=== PATIENT | male | born 1925 | race Caucasian/White ===

== ENCOUNTER 2016-09-26 19:27 | Emergency (ER) | payer MEDICARE, OTHER ==
[2010-10-13 12:35] VITALS: BMI 23.7
[2016-09-26 20:00] LABS: BASOPHILS 0.3 % (0.0-2.0); EOSINOPHILS 1.5 % (0-7); HEMATOCRIT 39.4 % (42.0-54.0); HEMOGLOBIN 12.8 g/dL (13.5-17.5); IMMATURE GRANULOCYTES 0.3 % (0-5); LYMPHOCYTES 16.1 % (15-50); MCH 30.7 pg (26.0-34.0); MCHC 32.5 g/dL (31.0-37.0); MCV 94.5 fL (80.0-100.0); MEAN PLATELET VOLUME 10.9 fL (7.4-10.4); NEUTROPHILS 72.8 % (40-80); PLATELET COUNT 182 10x3/uL (130-400); RBC 4.17 10x6/uL (4.20-6.10); RDW 13.8 % (11.5-14.5); WBC 7.1 10x3/uL (4.8-10.8)
[2016-09-26 20:23] LABS: ALBUMIN 4.1 g/dL (3.4-5.0); ANION GAP 12.7 mmol/L (8-16); BILIRUBIN - TOTAL 0.36 mg/dL (0.2-1.3); CALCIUM 9.5 mg/dL (8.5-10.1); CARBON DIOXIDE 28.2 mmol/L (21.0-32.0); CREATININE - SERUM 1.1 mg/dL (0.6-1.3); POTASSIUM - SERUM 4.9 mmol/L (3.5-5.1); PROTEIN - SERUM 7.7 g/dL (6.4-8.2)
[2016-09-26 20:44] LABS: APPEARANCE CLEAR (CLEAR); COLOR YELLOW (YELLOW)
[2016-09-26 20:45] LABS: BILIRUBIN NEGATIVE (NEGATIVE); GLUCOSE NEGATIVE (NEGATIVE); KETONE NEGATIVE (NEGATIVE); LEUKOCYTE ESTERASE NEGATIVE (NEGATIVE); NITRITE NEGATIVE (NEGATIVE); PROTEIN TRACE mg/dL (NEGATIVE); UROBILINOGEN NORMAL (NORMAL)
== END 2016-09-26 22:06 | disposition home or self-care (01) ==
LOC: D.ER 19:27
PROVIDERS: Emergency Medicine
DX: R10.31 Right lower quadrant pain (principal); K59.00 Constipation, unspecified

== ENCOUNTER 2017-02-09 11:23 | Emergency (ER) | payer MEDICARE, OTHER ==
[2010-10-13 12:35] VITALS: BMI 23.7
== END 2017-02-09 12:35 | disposition home or self-care (01) ==
LOC: D.ER 11:23
DX: L03.116 Cellulitis of left lower limb (principal); M25.562 Pain in left knee

== ENCOUNTER 2017-09-05 12:36 | Inpatient (IN) | payer MEDICARE, OTHER ==
[~2017-09-05] VITALS: Ht 180.3 cm; Wt 72.6 kg
--- NOTE | ~2017-09-05 | HP ---
PATIENT: EDITH LI MEDICAL RECORD: [id number] ACCOUNT: [id number] LOCATION:[facility] : [birth year] ADMISSION DATE: 09/05/17 HISTORY AND PHYSICAL EXAMINATION HISTORY OF PRESENT ILLNESS: An 89-year-old male presented to the Emergency Room with right upper quadrant pain, discomfort, constipation. Denies any nausea or vomiting. PAST MEDICAL HISTORY: Significant for pacemaker placement, advanced age, general decline. REVIEW OF SYSTEMS: GENERAL: No acute change in weight or appetite. HEENT: No cephalgia, visual changes, tinnitus, epistaxis, or dysphagia. CARDIOVASCULAR: Denies chest pain. Denies palpitations. PULMONARY: Denies hemoptysis. Denies night sweats. GASTROINTESTINAL: Right upper quadrant discomfort. Denies nausea or vomiting. Denies diarrhea. Admits constipation over the past 2 days. GENITOURINARY: Denies dysuria. Denies change in frequency. MUSCULOSKELETAL: No acute changes. ENDOCRINE: Denies polyuria, polydipsia, or polyphagia. PHYSICAL EXAMINATION: VITAL SIGNS: Temperature 98.2, blood pressure 110/64, heart rate 74, respirations 20, O2 sats 93% on room air. GENERAL: Alert, oriented, conversant, in mild discomfort secondary to NG tube placement. HEENT: Head: Normocephalic, atraumatic. Eyes: Pupils are equally round and reactive. Ears: Canals patent. TMs are intact. Nose: Nares patent without drainage. Throat: No erythema. No exudates. NECK: Supple. No lymphadenopathy. No JVD. HEART: Regular rate and rhythm. LUNGS: Clear to auscultation bilaterally. Breathing is nonlabored. ABDOMEN: NGT in place. Mild right upper quadrant tenderness. No rebound. No guarding. No palpable mass. MUSCULOSKELETAL: No acute changes. No edema. NEUROLOGIC: No focal deficits. LABORATORY DATA: CBC: White count 9.4, hemoglobin 14.2, hematocrit 42.7, platelets 212. Chemistry shows a sodium of 140, potassium 3.8, chloride 101, bicarbonate 28, BUN 23, creatinine 1.2. AST 16, ALT 19, albumin is 4.3. IMAGING: CT abdomen and pelvis: Mildly prominent interstitial lung markings, which appear chronic. Mild gallbladder distention. Distended large and small bowel consistent with ileus. ASSESSMENT AND PLAN: 1. Ileus. NG tube in place. Cautious IV supplementation. Fluids. Suppository times 1. Monitor electrolytes. 2. Gallbladder distention. Consult Dr. Carroll. General surgery evaluation. Supportive care. TRANSINT:[id number] Voice Confirmation ID: [id number] DOCUMENT ID: [id number] HISTORY AND PHYSICAL [id number] EDITH LI ROBERT DO at 1511 CC: [id number] DICTATION DATE: 09/06/17835 LABOR RELATIONS WORKER: 09/06/17 0909 DIS IN 09/09/17 [id number] [place] [address]
[2017-09-05 17:49] LABS: BASOPHILS 0.4 % (0-2); EOSINOPHILS 0.6 % (0-7); HEMATOCRIT 41.2 % (42.0-54.0); HEMOGLOBIN 13.7 g/dL (13.5-17.5); IMMATURE GRANULOCYTES 0.1 % (0-5); LYMPHOCYTES 21.6 % (15-50); MCH 31.3 pg (26.0-34.0); MCHC 33.3 g/dL (31.0-37.0); MCV 94.1 fL (80.0-100.0); MONOCYTES 7.6 % (2-11); NEUTROPHILS 69.7 % (40-80); PLATELET COUNT 173 10x3/uL (130-400); RBC 4.38 10x6/uL (4.20-6.10); RDW 13.7 % (11.5-14.5)
[2017-09-05 18:52] LABS: ALBUMIN 4.2 g/dL (3.4-5.0); ANION GAP 13.1 mmol/L (8-16); BILIRUBIN - TOTAL 0.65 mg/dL (0.2-1.3); CARBON DIOXIDE 27.6 mmol/L (21.0-32.0); CREATININE - SERUM 1.1 mg/dL (0.6-1.3); POTASSIUM - SERUM 4.7 mmol/L (3.5-5.1)
[2017-09-06 00:24] VITALS: BP 154/78; BMI 22.3
[2017-09-06] MEDS ORDERED: ACETAMINOPHEN325 MG PO (00:24)
[2017-09-06 04:00] VITALS: BP 154/76
[2017-09-06 04:23] LABS: BASOPHILS 0.3 % (0-2); EOSINOPHILS 0.4 % (0-7); HEMATOCRIT 42.7 % (42.0-54.0); HEMOGLOBIN 14.2 g/dL (13.5-17.5); IMMATURE GRANULOCYTES 0.2 % (0-5); LYMPHOCYTES 13.2 % (15-50); MCH 31.5 pg (26.0-34.0); MCHC 33.3 g/dL (31.0-37.0); MCV 94.7 fL (80.0-100.0); MEAN PLATELET VOLUME 11.3 fL (7.4-10.4); NEUTROPHILS 78.9 % (40-80); PLATELET COUNT 212 10x3/uL (130-400); RBC 4.51 10x6/uL (4.20-6.10); RDW 13.6 % (11.5-14.5); WBC 9.4 10x3/uL (4.8-10.8)
[2017-09-06 04:40] LABS: ALBUMIN 4.3 g/dL (3.4-5.0); ANION GAP 14.8 mmol/L (8-16); BILIRUBIN - TOTAL 0.69 mg/dL (0.2-1.3); CREATININE - SERUM 1.2 mg/dL (0.6-1.3); PROTEIN - SERUM 8.4 g/dL (6.4-8.2)
[2017-09-06 04:42] LABS: POTASSIUM - SERUM 3.8 mmol/L (3.5-5.1)
[2017-09-06 07:44] VITALS: BP 110/64
[2017-09-06 12:21] VITALS: BP 126/58
[2017-09-06 13:32] VITALS: BMI 22.3
[2017-09-06 15:55] VITALS: BP 130/69
[2017-09-06 17:35] VITALS: Ht 180.3 cm; Wt 72.6 kg
[2017-09-06 20:00] VITALS: BP 160/67
[2017-09-07 04:00] VITALS: BP 119/72
[2017-09-07 06:07] LABS: BASOPHILS 0.3 % (0-2); EOSINOPHILS 0.4 % (0-7); HEMATOCRIT 37.3 % (42.0-54.0); HEMOGLOBIN 12.1 g/dL (13.5-17.5); IMMATURE GRANULOCYTES 0.1 % (0-5); LYMPHOCYTES 12.9 % (15-50); MCH 30.4 pg (26.0-34.0); MCHC 32.4 g/dL (31.0-37.0); MCV 93.7 fL (80.0-100.0); MEAN PLATELET VOLUME 10.9 fL (7.4-10.4); MONOCYTES 9.9 % (2-11); NEUTROPHILS 76.4 % (40-80); RBC 3.98 10x6/uL (4.20-6.10); RDW 13.7 % (11.5-14.5); WBC 7.4 10x3/uL (4.8-10.8)
[2017-09-07 06:21] LABS: PLATELET COUNT 161 10x3/uL (130-400)
[2017-09-07 06:26] LABS: ALBUMIN 3.3 g/dL (3.4-5.0); ALKALINE PHOSPHATASE 59 U/L (46-116); ALT (SGPT) 16 U/L (10-68); CALC OSMOLALITY 291 mosm/kg (275-300); CALCIUM 8.5 mg/dL (8.5-10.1); CARBON DIOXIDE 26.4 mmol/L (21.0-32.0); CHLORIDE - SERUM 107 mmol/L (98-107); GLUCOSE 86 mg/dL (74-106); MAGNESIUM - SERUM 2.3 mg/dL (1.8-2.4); PHOSPHOROUS 2.2 mg/dL (2.5-4.9); POTASSIUM - SERUM 3.8 mmol/L (3.5-5.1); PROTEIN - SERUM 6.5 g/dL (6.4-8.2); SODIUM 145 mmol/L (136-145); UREA NITROGEN 24 mg/dL (7-18); eGFR NON AFRICAN AMERICAN 75 mL/min (90-120)
[2017-09-07 08:15] VITALS: BP 134/58
[2017-09-07 21:57] VITALS: BP 126/57
[2017-09-08 00:57] VITALS: BP 128/58
[2017-09-08 04:36] LABS: BASOPHILS 0.1 % (0-2); EOSINOPHILS 0.3 % (0-7); HEMATOCRIT 36.5 % (42.0-54.0); HEMOGLOBIN 11.9 g/dL (13.5-17.5); IMMATURE GRANULOCYTES 0.3 % (0-5); LYMPHOCYTES 9.2 % (15-50); MCH 30.7 pg (26.0-34.0); MCHC 32.6 g/dL (31.0-37.0); MCV 94.1 fL (80.0-100.0); MEAN PLATELET VOLUME 10.5 fL (7.4-10.4); NEUTROPHILS 81.1 % (40-80); PLATELET COUNT 157 10x3/uL (130-400); RBC 3.88 10x6/uL (4.20-6.10); RDW 13.9 % (11.5-14.5)
[2017-09-08 04:45] LABS: WBC 9.3 10x3/uL (4.8-10.8)
[2017-09-08 04:58] LABS: ALBUMIN 3.5 g/dL (3.4-5.0); ALKALINE PHOSPHATASE 57 U/L (46-116); ALT (SGPT) 17 U/L (10-68); CALC OSMOLALITY 289 mosm/kg (275-300); CALCIUM 8.6 mg/dL (8.5-10.1); CARBON DIOXIDE 24.3 mmol/L (21.0-32.0); CHLORIDE - SERUM 108 mmol/L (98-107); CREATININE - SERUM 0.9 mg/dL (0.6-1.3); GLUCOSE 103 mg/dL (74-106); POTASSIUM - SERUM 3.7 mmol/L (3.5-5.1); PROTEIN - SERUM 6.7 g/dL (6.4-8.2); SODIUM 144 mmol/L (136-145); UREA NITROGEN 22 mg/dL (7-18); eGFR NON AFRICAN AMERICAN 84 mL/min (90-120)
[2017-09-08 05:45] VITALS: BP 134/54
[2017-09-08 09:16] VITALS: BP 119/63
[2017-09-08 12:08] VITALS: BP 120/68
[2017-09-08 16:07] VITALS: BP 125/67
[2017-09-08 23:18] VITALS: BP 131/87
[2017-09-09 04:00] VITALS: BP 140/82
[2017-09-09 05:16] LABS: BASOPHILS 0.3 % (0-2); EOSINOPHILS 2.1 % (0-7); HEMATOCRIT 36.8 % (42.0-54.0); IMMATURE GRANULOCYTES 0.3 % (0-5); LYMPHOCYTES 18.8 % (15-50); MCH 30.8 pg (26.0-34.0); MCHC 32.6 g/dL (31.0-37.0); MCV 94.4 fL (80.0-100.0); MEAN PLATELET VOLUME 10.9 fL (7.4-10.4); NEUTROPHILS 68.5 % (40-80); PLATELET COUNT 159 10x3/uL (130-400); RDW 13.9 % (11.5-14.5)
[2017-09-09 05:27] LABS: WBC 6.8 10x3/uL (4.8-10.8)
[2017-09-09 05:42] LABS: ALBUMIN 3.2 g/dL (3.4-5.0); ALKALINE PHOSPHATASE 55 U/L (46-116); ALT (SGPT) 16 U/L (10-68); BILIRUBIN - TOTAL 0.61 mg/dL (0.2-1.3); CALC OSMOLALITY 285 mosm/kg (275-300); CALCIUM 9.2 mg/dL (8.5-10.1); CARBON DIOXIDE 25.2 mmol/L (21.0-32.0); CHLORIDE - SERUM 107 mmol/L (98-107); CREATININE - SERUM 0.9 mg/dL (0.6-1.3); GLUCOSE 83 mg/dL (74-106); POTASSIUM - SERUM 3.7 mmol/L (3.5-5.1); PROTEIN - SERUM 6.6 g/dL (6.4-8.2); SODIUM 143 mmol/L (136-145); UREA NITROGEN 18 mg/dL (7-18); eGFR NON AFRICAN AMERICAN 84 mL/min (90-120)
[2017-09-09 08:25] VITALS: BP 142/64
[2017-09-09] MEDS ORDERED: MILK OF MAGNESI30 ML PO (11:03)
== END 2017-09-09 13:44 | disposition home or self-care (01) | DRG 390 ==
LOC: D.ER 12:36 → D.EDHOLD 21:40 → D.MS 21:40
PROVIDERS: Family Medicine; Nurse Practitioner Family
PROC: 0D9670Z Drainage of Stomach with Drainage Device, Via Natural or Artificial Opening (ICD-10-PCS; principal; 2017-09-05)
DX: K56.7 Ileus, unspecified (principal); K82.8 Other specified diseases of gallbladder; K59.00 Constipation, unspecified; Z95.0 Presence of cardiac pacemaker; I10 Essential (primary) hypertension; K21.9 Gastro-esophageal reflux disease without esophagitis